=== PATIENT | female | born 1950 | race Caucasian/White ===

== ENCOUNTER 2017-01-20 07:08 | Day surgery (SDC) | payer MEDICARE, OTHER ==
[~2017-01-20 07:08] MED LIST: Lactated Ringers 1,000 ML IV SCH; Lidocaine 1%/Sod Bicarbonate in NS 8.4% 1 ML Syringe IV ONE; Lidocaine 1%/Sod Bicarbonate in NS 8.4% 1 ML Syringe IV PRN; Sodium Chloride 0.9% 10 ML Syringe FLUSH PRN
[2017-01-20] MEDS ORDERED: Lactated Ringers 1,000 ML IV SCH (07:15)
[2017-01-20] MEDS ORDERED: Lidocaine 1% with EPINEPHrine 1:100,000 20 ML MDV ONE (07:21)
[2017-01-20] MEDS ORDERED: Sodium Chloride 0.9% 50 ML SDV ONE (07:21)
[2017-01-20] MEDS ORDERED: Bupivacaine 0.25%/EPINEPHrine 1:200,000 30 ML SDV ONE (07:21)
[2017-01-20] MEDS ORDERED: Ondansetron 4 MG/2 ML SDV ONE (07:26)
[2017-01-20] MEDS ORDERED: Midazolam 1 MG/ML 2 ML SDV ONE ×2 (07:26→08:18)
[2017-01-20] MEDS ORDERED: Lidocaine 1% 0 ML ONE (07:26)
[2017-01-20] MEDS ORDERED: Lactated Ringers 1,000 ML ONE (07:26)
[2017-01-20] MEDS ORDERED: Ketamine 500 mg/10 ML MDV ONE (07:26)
[2017-01-20] MEDS ORDERED: fentaNYL 100 MCG/2 ML SDV ONE (07:26)
[2017-01-20] MEDS ORDERED: Propofol 200 MG/20 ML SDV ONE (07:26)
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
[2017-01-20] MEDS ORDERED: Rocuronium 50 MG/5 ML Vial ONE (08:19)
[2017-01-20] MEDS ORDERED: Bacitracin Oint 15 GM Tube ONE (09:02)
[2017-01-20] MEDS ORDERED: Midazolam 1 MG/ML 2 ML SDV IVPUSH PRN (09:03)
[2017-01-20] MEDS ORDERED: fentaNYL 100 MCG/2 ML SDV IVPUSH PRN (10:00)
[2017-01-20] MEDS ORDERED: HYDROmorphone 0.5 MG/0.5 ML Syringe IVPUSH PRN (10:00)
--- NOTE | 2017-01-20 10:07 | PCM.OPNOTE ---
- General Post-Op/Procedure Note Date of Surgery/Procedure: 01/20/17 Operative Procedure(s): 1. Diagnostic EGD with cold forceps biopsy. 2. Diagnostic colonoscopy with cold forceps polypectomy. 3. Excision of left thigh lesion Pre Op Diagnosis: 1. Left thigh skin lesion. 2. Abdominal pain. 3. Change in bowel pattern. 4. Bloating Post-Op Diagnosis: 1. Left thigh skin lesion. 2. Gastritis. 3. Duodenitis. 4. Esophagitis. 5. Small hiatal hernia. 6. Colon polyps. 7. Diverticulosis [place]est[place] [facility] [place]geon: Nalini Wall Anesthesia Provider: Julia Garrido Sound Assistant: Eli Stone Pathology: 1. Small bowel biopsy 2. Antral biopsy 3. Distal esophageal biopsy 4. Fluid Replacement, Intraop: 1,200 (mL crystalloid) EBL in mLs: 1 Complications: None Condition: Good Free Text/Narrative:: INDICATION FOR PROCEDURE: The patient is a 66-year-old woman who was referred to me by PRIMO Acosta for evaluation for chronic abdominal pain. She also had a skin lesion on her left upper thigh that appeared concerning. Performing a colonoscopy and EGD and the associated risks of the procedures had been discussed with the patient. The patient found these risks acceptable and agreed to proceed. DESCRIPTION OF PROCEDURE: The patient was taken to the operating room and placed under general anesthesia due to her previous sensitivities to propofol. A procedure was performed by Dr. Molina with gynecology, and after completion of her portion of the procedure, I was called to the operating room for the remaining procedures. The patient's left leg lesion was initially addressed. The skin lesion on the anterior surface of the left thigh measured 1 cm x 0.5 cm and appeared suspicious for a skin cancer. The area was prepped with chlorhexidine and draped in usual sterile fashion. Local anesthetic was injected under the lesion. A 1.5 cm x 1 cm ellipse was then created around the lesion with a scalpel. The skin was excised down to the subcutaneous fat. Undermining of 1.5 cm was performed circumferentially. The skin was approximated using 3-0 Ethilon interrupted sutures. The length of closure was 3.5 cm. 4 x 4's with bacitracin and a Tegaderm were applied. The specimen was marked, short stitch superior, long stitch lateral and sent to pathology. She was then placed in the left lateral decubitus position. After induction of adequate sedation, a bite block was placed. A standard Olympus gastroscope was inserted into the oropharynx and guided down the esophagus without difficulty. The gastroesophageal junction was appreciated at 39 cm from the teeth. There was no evidence of stricture or esophageal ulcerations. There was some mild esophagitis about the GE junction. The scope was advanced into the stomach, and there was mild gastritis. The scope was passed into the proximal jejunum and the duodenum which showed duodenitis of D1 and D2. There were no ulcerations. The proximal jejunum was grossly normal in appearance. Multiple cold forceps biopsies were obtained of the proximal jejunum and duodenum. The scope was withdrawn into the antrum, and additional cold forceps biopsies were obtained. The remainder of the gastric body was examined, and there was a diminutive hiatal hernia. The scope was retroflexed. The scope was straightened and withdrawn to the GE junction. Additional cold forceps biopsies were obtained of the distal esophagus. The scope was withdrawn through the remainder of the esophagus and no further abnormalities were noted. The posterior oropharynx was grossly normal in appearance. The scope was fully withdrawn and attention was then turned to the colonoscopy. A digital rectal exam was performed which was unremarkable. A standard adult Olympus colonoscope was inserted into the rectum and guided under direct visualization to the appendiceal orifice and ileocecal valve. Counter pressure was utilized to reach the cecum. There was a small polyp noted in the cecum, this was removed using cold forceps. There was another small polyp noted at the hepatic flexure. This was removed using cold forceps. There was a polyp in the sigmoid colon, this was small and removed using cold forceps. Finally there was a small rectal polyp, this was removed using cold forceps. The quality of the prep was good but did require irrigation/suctioning. There was no evidence of angiodysplasias. There were scattered diverticulum in the sigmoid colon. The scope was withdrawn into the rectum and retroflexed. There was no minimal, grade 1, prominence of the patient's internal hemorrhoids. The scope was straightened, the colon was desufflated, and the scope was withdrawn. The patient was awakened from anesthesia, extubated, and transferred to the recovery room in stable condition having tolerated the procedure well. Sponge and instrument counts were reported as correct at the end of the case. POSTOPERATIVE PLAN: I discussed with the patient and her significant other my intraoperative findings and recommendations. The patient will follow up in approximately 14 days to discuss pathology, her symptoms, and have suture removal from her left thigh. The patient is to stop her Fioricet as it has aspirin and caffeine. She is also to stop her meloxicam and naproxen. She has been started on omeprazole 20 mg daily. I have asked the patient to follow a GERD\gastritis diet. The patient is to call with any worsening of symptoms or questions prior to the appointment.
--- NOTE | 2017-01-20 10:10 | PCM.POSTAN ---
POST ANESTHESIA ASSESSMENT - MENTAL STATUS Mental Status: alert - VITAL SIGNS Pulse Rate: 92 SaO2: 100 Resp Rate: 23 Blood Pressure: 139/62 Temperature: 37.0 C - RESPIRATORY Respiratory Status: respiratory rate WNL, airway patent, O2 saturation stable, supplemental oxygen - CARDIOVASCULAR CV Status: pulse rate WNL, blood pressure stable - GASTROINTESTINAL GI Status: no symptoms - POST OP HYDRATION Hydration Status: adequate & stable
[2017-01-20 11:51] VITALS: BP 127/89
--- NOTE | 2017-01-20 11:59 | PCM48HPAN ---
Post Anesthesia Note - EVALUATION WITHIN 48HRS OF ANESTHETIC Vital Signs in Normal Range: Yes Patient Participated in Evaluation: Yes Respiratory Function Stable: Yes Airway Patent: Yes Cardiovascular Function Stable: Yes Hydration Status Stable: Yes Pain Control Satisfactory: Yes Nausea and Vomiting Control Satisfactory: Yes Mental Status Recovered: Yes
--- NOTE | 2017-01-21 23:48 | PCM.OPNOTE ---
- General Post-Op/Procedure Note Date of Surgery/Procedure: 01/20/17 Operative Procedure(s): excision of vulvar sebaceous cyts Findings: 5 small vulvar cysts with sebaceous material. Pre Op Diagnosis: vulvar cysts Post-Op Diagnosis: Same Anesthesia Technique: General ET tube Primary Surgeon: Connie Molina Fluid Replacement, Intraop: 300 Complications: None Condition: Good Free Text/Narrative:: Patient taken to OR. GETA initiated. Prepped and draped in lithotomy in frog leg position. Local anesthetic of 1% lidocaine infiltrated under 5 small sebaceous cysts. Each excised with scalpel and metzembaum scissors used to remove cyst wall and sebaceous material. 3-0 vicryl used to close skin. Minimal blood loss. Patient then taken out of frog leg position and moved for Dr. Wall 's procedures.
== END 2017-01-20 12:10 | disposition home or self-care (01) ==
LOC: JD.SDS 07:08
PROVIDERS: ATTEND Surgery
DX: K21.0 Gastro-esophageal reflux disease with esophagitis (principal); K29.00 Acute gastritis without bleeding; K29.80 Duodenitis without bleeding; K44.9 Diaphragmatic hernia without obstruction or gangrene; D12.0 Benign neoplasm of cecum; K63.5 Polyp of colon; D12.3 Benign neoplasm of transverse colon; D12.5 Benign neoplasm of sigmoid colon; D04.72 Carcinoma in situ of skin of left lower limb, including hip; K57.30 Diverticulosis of large intestine without perforation or abscess without bleeding; I10 Essential (primary) hypertension; E03.9 Hypothyroidism, unspecified; F41.9 Anxiety disorder, unspecified; Z98.890 Other specified postprocedural states; Z90.49 Acquired absence of other specified parts of digestive tract
CPT/HCPCS: 11602; 43239; 45380; 88305; 93005; A9270; J2250; J3010; J7120; 00400; J2405; J2704

== ENCOUNTER 2017-02-12 11:09 | Emergency (ER) | payer MEDICARE, OTHER ==
[2017-02-12 11:22] VITALS: BP 171/91
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
--- NOTE | 2017-02-12 13:41 | CR ---
Chest: Two views of the chest were obtained. Comparison: No previous chest x-ray. Patchy areas of increased density seen within the mid and upper lungs on both sides. Heart size and mediastinum are normal. Surgical anchor noted within the right humerus. Previous cervical spine surgery is noted. Impression: 1. Patchy increased density within both mid and upper lungs most likely representing bilateral pneumonia. Follow-up study recommended several weeks after clinical therapy is complete to make sure findings resolve as expected for pneumonia. 2. Other incidental findings. Diagnostic code #3
== END 2017-02-12 13:40 | disposition home or self-care (01) ==
LOC: JD.ED 11:09
DX: J18.9 Pneumonia, unspecified organism (principal); J40 Bronchitis, not specified as acute or chronic; I10 Essential (primary) hypertension; K21.9 Gastro-esophageal reflux disease without esophagitis; D64.9 Anemia, unspecified; E03.9 Hypothyroidism, unspecified; Z85.828 Personal history of other malignant neoplasm of skin; Z98.890 Other specified postprocedural states; Z86.73 Personal history of transient ischemic attack (TIA), and cerebral infarction without residual deficits; Z90.49 Acquired absence of other specified parts of digestive tract; Z79.899 Other long term (current) drug therapy; Z88.1 Allergy status to other antibiotic agents; Z88.8 Allergy status to other drugs, medicaments and biological substances
CPT/HCPCS: 36415; 71020; 71020-26; 80053; 85025; 86140; 87804; 99283; 99284

== ENCOUNTER 2017-04-24 11:45 | Emergency (ER) | payer MEDICARE, OTHER ==
[2017-04-24 11:54] VITALS: BP 147/80
[2017-04-24] MEDS ORDERED: Sodium Chloride 0.9% 10 ML Syringe FLUSH PRN (12:42)
--- NOTE | 2017-04-24 12:45 | EDM.PDOC ---
ED HPI GENERAL MEDICAL PROBLEM - General Chief Complaint: Lower Extremity Injury/Pain Stated Complaint: FELL SEVERAL TIMES HIP PAIN Time Seen by Provider: 04/24/17 12:35 Source of Information: Reports: Patient History Limitations: Reports: No Limitations - History of Present Illness INITIAL COMMENTS - FREE TEXT/NARRATIVE: 66-year-old female presents for evaluation treatment of right hip pain. Patient reports that she has been falling more recently. She attributes these falls due to sleepwalking. She reports that she is able to walk but it is painful. She is reporting pain in the right hip and into her right buttocks. She's had several falls within the last few weeks. She does not remember many of these falls. She is unsure if she's had head trauma. She reports increased blurry vision and tingling in her fingers. She denies any headaches, neck pain, nausea or vomiting. Patient is not on any blood thinners. Duration: Week(s): (1) Right Hip Pain Score (Numeric/FACES): 7 - Related Data Allergies Allergy/AdvReac Type Severity Reaction Status Date / Time cefaclor [From Ceclor] Allergy Cannot Verified 02/12/17 11:24 Remember levofloxacin [From Levaquin] Allergy Other Verified 02/12/17 11:24 morphine Allergy Other Verified 02/12/17 11:24 amoxicillin trihydrate AdvReac Nausea and Verified 02/12/17 11:24 [From Augmentin] Vomiting atorvastatin [From Lipitor] AdvReac Nausea and Verified 02/12/17 11:24 Vomiting doxycycline AdvReac Blurred Verified 02/12/17 11:24 Vision duloxetine [From Cymbalta] AdvReac Drowsiness Verified 02/12/17 11:24 potassium clavulanate AdvReac Nausea and Verified 02/12/17 11:24 [From Augmentin] Vomiting propofol AdvReac Agitation Verified 02/12/17 11:24 triamcinolone acetonide AdvReac Agitation Verified 02/12/17 11:24 [From Kenalog] venlafaxine [From Effexor] AdvReac Nausea and Verified 02/12/17 11:24 Vomiting Home Meds: Home Meds ALPRAZolam [Xanax] 0.5 tab PO BID 08/12/15 [History] Baclofen 20 mg PO QAM 08/12/15 [History] Baclofen 40 mg PO BEDTIME 08/12/15 [History] FLUoxetine [PROzac] 80 mg PO DAILY 08/12/15 [History] Losartan/Hydrochlorothiazide [Hyzaar 100-12.5 Tablet] 1 each PO DAILY 08/12/15 [ History] Melatonin 1 tab PO 0300 08/12/15 [History] Melatonin 2 tab PO BEDTIME 08/12/15 [History] diphenhydrAMINE [Benadryl] 2 tab PO Q2H PRN 08/12/15 [History] ALPRAZolam 1 mg PO 1800 01/19/17 [History] Albuterol Sulfate [Proair Hfa] 2 puff INH Q4HR PRN 01/19/17 [History] Alendronate Sodium [Fosamax] 70 mg PO WEEKLY 01/19/17 [History] Amitriptyline HCl 100 mg PO BEDTIME 01/19/17 [History] Calcium Carbonate [Calcium] 600 mg PO DAILY 01/19/17 [History] Cholecalciferol (Vitamin D3) [Vitamin D3] 2,000 unit PO DAILY 01/19/17 [History] Colestipol HCl [Colestipol] 5 g PO BID 01/19/17 [History] Donepezil HCl [Aricept] 5 mg PO BEDTIME 01/19/17 [History] Hydrocodone/Acetaminophen [[place] 10-325 Tablet] 1 tab PO Q4H PRN 01/19/17 [ History] Levothyroxine [Synthroid] 1 dose PO DAILY 01/19/17 [History] Omeprazole Magnesium [Prilosec Otc] 20 mg PO DAILY #30 tablet. 01/20/17 [Rx] Acetaminophen/Butalbital/Caff [Fioricet 325-50-40 MG] 1 tab PO Q4H PRN 04/24/17 [History] Meloxicam [Mobic] 15 mg PO DAILY PRN 04/24/17 [History] Mupirocin [Mupirocin] 1 dose TOP BID PRN 04/24/17 [History] Naproxen Sodium [Naproxen Sodium Cr] 500 mg PO ASDIRECTED PRN 04/24/17 [History] Past Medical History HEENT History: Reports: Hard of Hearing, Sinusitis Cardiovascular History: Reports: Hypertension Respiratory History: Reports: None Gastrointestinal History: Reports: GERD Other Gastrointestinal History: epigastric pain Other OB/BYN History: breast lump Musculoskeletal History: Reports: Back Pain, Chronic, Other (See Below) Other Musculoskeletal History: osteomylitis Neurological History: Reports: CVA, Headaches, Chronic, Head Trauma, Other (See Below) Other Neuro History: memory loss, Psychiatric History: Reports: Anxiety, Other (See Below) Other Psychiatric History: insomnia, memory loss Endocrine/Metabolic History: Reports: Hypothyroidism Other Endocrine/Metabolic History: hypothyroidism Hematologic History: Reports: Blood Transfusion(s) Immunologic History: Reports: None Oncologic (Cancer) History: Reports: Other (See Below) Other Oncologic History: skin cancer Dermatologic History: Reports: Other (See Below) Other Dermatologic History: bartholian cyst - Past Surgical History GI Surgical History: Reports: Cholecystectomy, Colonoscopy, EGD, Other (See Below) Female Surgical History: Reports: Tubal Ligation Musculoskeletal Surgical History: Reports: Other (See Below) Other Musculoskeletal Surgeries/Procedures:: sciatica Dermatological Surgical History: Reports: Other (See Below) Social & Family History - Family History Family Medical History: Noncontributory - Tobacco Use Smoking Status *Q: Never Smoker - Caffeine Use Caffeine Use: Reports: Coffee - Recreational Drug Use Recreational Drug Use: No Review of Systems - Review of Systems Review Of Systems: See Below Eyes: Reports: Blurred Vision GI/Abdominal: Denies: Nausea, Vomiting Musculoskeletal: Reports: Other (right hip pain). Denies: Neck Pain Neurological: Reports: Tingling, Difficulty Walking. Denies: Headache ED EXAM, GENERAL - Physical Exam Exam: See Below Exam Limited By: No Limitations General Appearance: Alert, WD/WN, No Apparent Distress Eye Exam: Bilateral Eye: EOMI, Normal Inspection, PERRL Ears: Normal External Exam, Normal Canal, Hearing Grossly Normal, Normal TMs Nose: Normal Inspection Throat/Mouth: Normal Inspection, Normal Lips, Normal Voice, No Airway Compromise Respiratory/Chest: No Respiratory Distress, Lungs Clear, Normal Breath Sounds Cardiovascular: Normal Peripheral Pulses, Regular Rate, Rhythm, No Murmur Peripheral Pulses: 2+: Posterior Tibial (L), Posterior Tibial (R), Dorsalis Pedis (L), Dorsalis Pedis (R) Extremities: Normal Inspection, Normal Range of Motion Neurological: Alert, Oriented, CN II-XII Intact, Normal Cognition, Normal Gait Psychiatric: Normal Affect, Normal Mood Skin Exam: Warm, Dry, Normal Color Course - Vital Signs Last Recorded V/S: Last Vital Signs Temp 36.7 C 04/24/17 11:51 Pulse 101 H 04/24/17 11:51 Resp 16 04/24/17 11:51 BP 147/80 H 04/24/17 11:51 Pulse Ox 97 04/24/17 11:51 - Orders/Labs/Meds Labs: Laboratory Tests 04/24/17 04/24/17 Range/Units 13:07 13:07 WBC 11.16 H (3.98-10.04) K/mm3 RBC 3.91 L (3.98-5.22) M/mm3 Hgb 12.4 (11.2-15.7) gm/L Hct 38.4 (34.1-44.9) % MCV 98.2 H (79.4-94.8) fl MCH 31.7 (25.6-32.2) pg MCHC 32.3 (32.2-35.5) g/dl RDW Std Deviation 49.3 H (36.4-46.3) fL Plt Count 271 (182-369) K/mm3 MPV 9.3 L (9.4-12.3) fl Neut % (Auto) 73.0 H (34.0-71.1) % Lymph % (Auto) 19.4 (19.3-51.7) % Terry % (Auto) 5.7 (4.7-12.5) % Eos % (Auto) 1.2 (0.7-5.8) Baso % (Auto) 0.4 (0.1-1.2) % Neut # (Auto) 8.15 H (1.56-6.13) K/mm3 Lymph # (Auto) 2.17 (1.18-3.74) K/mm3 Terry # (Auto) 0.64 H (0.24-0.36) K/mm3 Eos # (Auto) 0.13 (0.04-0.36) K/mm3 Baso # (Auto) 0.04 (0.01-0.08) K/mm3 Sodium 141 (136-145) mEq/L Potassium 4.0 (3.5-5.1) mEq/L Chloride 105 (98-107) mEq/L Carbon Dioxide 26 (21-32) mEq/L Anion Gap 14.0 (5-15) BUN 9 (7-18) mg/dL Creatinine 1.1 H (0.55-1.02) mg/dL Est Cr Clr Drug Dosing 41.62 mL/min Estimated GFR (MDRD) 50 (>60) mL/min BUN/Creatinine Ratio 8.2 L (14-18) Glucose 104 (80-115) mg/dL Calcium 8.9 (8.5-10.1) mg/dL Magnesium 1.9 (1.8-2.4) mg/dl Total Bilirubin 0.2 (0.2-1.0) mg/dL AST 20 (15-37) U/L ALT 32 (14-59) U/L Alkaline Phosphatase 93 (46-116) U/L Total Protein 7.7 (6.4-8.2) g/dl Albumin 3.5 (3.4-5.0) g/dl Globulin 4.2 gm/dL Albumin/Globulin Ratio 0.8 L (1-2) Meds: Medications Discontinued Medications Generic Name Dose Route Start Last Admin Trade Name Freq PRN Reason Stop Dose Admin Sodium Chloride 10 ml 04/24/17 12:42 04/24/17 13:09 Saline Flush FLUSH 10 ml ASDIRECTED PRN Administration Keep Vein Open - Radiology Interpretation Free Text/Narrative:: Head CT without contrast impression per Dr. Villagomez: 1. several old infacts as described. mild generalized atrophy. other senescent changes. 2. minimal sinus findings which are felt to be incidental. 3. No acute intracranial abdormailty is identified. No skull fracture is seen. right hip and pelvis xray reviewed by myself and Dr. Magana. Shows no acute fractures or dislocations. Osteopenia. CT Results Date: 04/24/17 - Re-Assessments/Exams Free Text/Narrative Re-Assessment/Exam: 04/24/17 14:40 Labs return. White blood cell count 11.16, hemoglobin 12.4 and platelets 271. Sodium 141, potassium 4.0, chloride 105. Anion gap 14.0. creatinine is 1.1. Glucose 104. Magnesium 1.9. Patient has been unable to give us a urine sample. We will defer it at this time. I reviewed the labs and imaging with the patient. I offered CT of the right hip to further evaluate. She declines at this time. Will discharge home with follow-up. Departure - Departure Time of Disposition: 14:44 Disposition: Home, Self-Care 01 Condition: Fair Clinical Impression: Hip pain, right, Fall - Discharge Information Instructions: Fall Prevention in the Home, [id number], Hip Pain Referrals: Renée Vasquez, DIRECT CUSTOMER SERVICE REPRESENTATIVE [Primary Care Provider] - Forms: ED Department Discharge Additional Instructions: Take you pain medication you have at home for pain control. Follow-up with PCP in 1 week if symptoms hve not improved. May use ice or heat to the sore areas for additional pain relief. Please return to the ER should your symptoms change or worsen.
--- NOTE | 2017-04-24 13:31 | CT ---
Head CT Technique: Multiple axial sections through the brain were obtained. Intravenous contrast was not utilized. Comparison: No previous intracranial imaging. Findings: Well-defined low density area is seen within the left cerebellar hemisphere which is felt compatible with old infarct. Ventricles along with basal cisterns and sulci over convexities are mildly prominent. Minimal diminished density is noted within the periventricular white matter which is compatible with small vessel ischemic demyelination change. Old lacunar infarct is noted within the left basal ganglia. No evidence of intracranial hemorrhage. No midline shift or mass effect is seen. Bone window settings were reviewed which shows mild mucosal thickening within the ethmoid sinuses. No acute calvarial abnormality is seen. Impression: 1. Several old infarcts as described above. Mild generalized atrophy. Other senescent change. 2. Minimal sinus findings which are felt to be incidental. 3. No acute intracranial abnormality is identified. No skull fracture is seen. Diagnostic code #2
--- NOTE | 2017-04-25 11:27 | CR ---
Pelvis and right hip: AP view of the pelvis was obtained as well as AP and frog-leg lateral views of the right hip. Comparison: No previous studies. Previous laminectomy is noted at L5. Joint spaces within both hips are maintained. Sacroiliac joint on the left side is poorly seen presumably due to degenerative change or possibly fusion. No acute fracture or other abnormality is seen. Impression: 1. Findings as noted above. Nothing acute is appreciated. Diagnostic code #2
== END 2017-04-24 15:10 | disposition home or self-care (01) ==
LOC: JD.ED 11:45
DX: M25.551 Pain in right hip (principal); I10 Essential (primary) hypertension; K21.9 Gastro-esophageal reflux disease without esophagitis; E03.9 Hypothyroidism, unspecified; Z86.69 Personal history of other diseases of the nervous system and sense organs; Z90.49 Acquired absence of other specified parts of digestive tract; Z88.1 Allergy status to other antibiotic agents; Z88.8 Allergy status to other drugs, medicaments and biological substances; Z79.899 Other long term (current) drug therapy; Z98.51 Tubal ligation status
CPT/HCPCS: 36415; 70450; 73502; 80053; 83735; 85025; 99284; J7050; 99283

== ENCOUNTER 2017-05-20 10:02 | Emergency (ER) | payer MEDICARE, OTHER ==
[2017-05-20 10:24] VITALS: BP 144/78
--- NOTE | 2017-05-20 10:31 | EDM.PDOC ---
ED HPI GENERAL MEDICAL PROBLEM - General Chief Complaint: Syncope Stated Complaint: PASSES OUT Time Seen by Provider: 05/20/17 10:30 Source of Information: Reports: Patient History Limitations: Reports: No Limitations - History of Present Illness INITIAL COMMENTS - FREE TEXT/NARRATIVE: 66-year-old female presents to the ED after experiencing a syncopal event or at least a loss of consciousness for prolonged period of time last evening. She was scheduled to come in last evening for a sleep study. She remembers going to her bathroom to get her toothbrush and other things that she might need and the next thing she knew she woke up on the floor and was an hour and a half later. The phone was ringing and they had to reschedule her sleep study. Patient states that she hit the cupboard door in her bedroom and knocked it off its hinges. The TV is tipped over and broken. The history suggests several types of similar events where there is a loss of memory for what happened and she thought perhaps was related to sleeping pills and discontinued Lunesta. They report one event where she went to bed with a bowl of ice cream with the hot chocolate sauce on it and awoke to found it splattered against the wall. I have some suspicion clinically that she is experiencing seizures that have not been diagnosed. She denies drinking any alcohol. is away in [place] at this time as his job is relocated him there and she is planning to move there in the next few weeks. She has never appreciated loss of bladder or bowel control during one of these events or biting her tongue. Onset: Sudden (Last p.m.) Onset Date: 05/19/17 Onset Time: 21:30 Duration: Hour(s): Location: Reports: Head Severity: Moderate Improves with: Reports: None Worsens with: Reports: None Context: Denies: Activity, Exercise, Lifting, Sick Contact, Trauma, Other Associated Symptoms: Reports: Confusion (Treatment confusion and her friend reports that she seems dysarthric at times an hour. Time her dysarthria will improve suggestive of a postictal phase sort of syndrome), Loss of Appetite, Malaise. Denies: Diaphoresis, Fever/Chills, Headaches, Nausea/Vomiting, Rash, Seizure, Shortness of Breath, Syncope Treatments CAR BUILDER: Reports: Other (see below) Right Upper Abdominal Pain Score (Numeric/FACES): 7 - Related Data Allergies Allergy/AdvReac Type Severity Reaction Status Date / Time cefaclor [From Ceclor] Allergy Cannot Verified 05/20/17 10:18 Remember levofloxacin [From Levaquin] Allergy Other Verified 05/20/17 10:18 morphine Allergy Other Verified 05/20/17 10:18 amoxicillin trihydrate AdvReac Nausea and Verified 05/20/17 10:18 [From Augmentin] Vomiting atorvastatin [From Lipitor] AdvReac Nausea and Verified 05/20/17 10:18 Vomiting doxycycline AdvReac Blurred Verified 05/20/17 10:18 Vision duloxetine [From Cymbalta] AdvReac Drowsiness Verified 05/20/17 10:18 potassium clavulanate AdvReac Nausea and Verified 05/20/17 10:18 [From Augmentin] Vomiting propofol AdvReac Agitation Verified 05/20/17 10:18 triamcinolone acetonide AdvReac Agitation Verified 05/20/17 10:18 [From Kenalog] venlafaxine [From Effexor] AdvReac Nausea and Verified 05/20/17 10:18 Vomiting Home Meds: Home Meds ALPRAZolam [Xanax] 0.5 mg PO DAILY@1400 08/12/15 [History] Baclofen 20 mg PO BID 08/12/15 [History] FLUoxetine [PROzac] 80 mg PO DAILY 08/12/15 [History] Losartan/Hydrochlorothiazide [Hyzaar 100-12.5 Tablet] 1 each PO DAILY 08/12/15 [ History] Albuterol Sulfate [Proair Hfa] 2 puff INH Q4HR PRN 01/19/17 [History] Alendronate Sodium [Fosamax] 70 mg PO TH@0600 01/19/17 [History] Amitriptyline HCl 100 mg PO BEDTIME 01/19/17 [History] Donepezil HCl [Aricept] 5 mg PO BEDTIME 01/19/17 [History] Hydrocodone/Acetaminophen [[place] 10-325 Tablet] 1 tab PO TID PRN 01/19/17 [ History] Acetaminophen/Butalbital/Caff [Fioricet 325-50-40 MG] 1 tab PO Q4H PRN 04/24/17 [History] ALPRAZolam [Alprazolam] 0.5 mg PO DAILY@0300 PRN 05/20/17 [History] ALPRAZolam [Alprazolam] 1 mg PO BEDTIME 05/20/17 [History] ARIPiprazole [Abilify] 1 mg PO BEDTIME 05/20/17 [History] Aloe Vera/Sodium Chloride [[place] Saline Nasal Gel] 1 applic BASIL ASDIRECTED PRN 07/27 [History] Ascorbic Acid [Vitamin C] 1,000 mg PO DAILY 05/20/17 [History] Baclofen 20 mg PO DAILY@1400 PRN 05/20/17 [History] Calcium Carbonate/Vitamin D3 [Calcium 600 + Vit D Tablet] 1 tab PO DAILY [History] Cholecalciferol (Vitamin D3) [D3 Dots] 2,000 unit PO DAILY 05/20/17 [History] Colestipol HCl [Colestipol HCl] 0.5 gm PO QID 05/20/17 [History] Cyanocobalamin (Vitamin B-12) [Vitamin B-12] 1,000 mcg PO DAILY 05/20/17 [ History] Gabapentin [Neurontin] 100 mg PO TID 05/20/17 [History] Levothyroxine [Synthroid] 100 mcg PO ACBREAKFAST 05/20/17 [History] Multivitamin with Minerals [Multiple Vitamin] 1 tab PO DAILY 05/20/17 [History] Omeprazole Magnesium [Prilosec Otc] 20 mg PO DAILY PRN 05/20/17 [History] Vitamin B Complex 1 each PO DAILY 05/20/17 [History] levETIRAcetam [Keppra] 500 mg PO ASDIRECTED #42 tablet 05/20/17 [Rx] Past Medical History HEENT History: Reports: Hard of Hearing, Sinusitis Cardiovascular History: Reports: Hypertension Respiratory History: Reports: None Gastrointestinal History: Reports: GERD Other Gastrointestinal History: epigastric pain Other OB/BYN History: breast lump Musculoskeletal History: Reports: Back Pain, Chronic, Other (See Below) Other Musculoskeletal History: osteomylitis Neurological History: Reports: CVA, Headaches, Chronic, Head Trauma, Other (See Below) Other Neuro History: memory loss, Psychiatric History: Reports: Anxiety, Other (See Below) Other Psychiatric History: insomnia, memory loss Endocrine/Metabolic History: Reports: Hypothyroidism Other Endocrine/Metabolic History: hypothyroidism Hematologic History: Reports: Blood Transfusion(s) Immunologic History: Reports: None Oncologic (Cancer) History: Reports: Other (See Below) Other Oncologic History: skin cancer Dermatologic History: Reports: Other (See Below) Other Dermatologic History: bartholian cyst - Past Surgical History GI Surgical History: Reports: Cholecystectomy, Colonoscopy, EGD, Other (See Below) Female Surgical History: Reports: Tubal Ligation Musculoskeletal Surgical History: Reports: Other (See Below) Other Musculoskeletal Surgeries/Procedures:: sciatica Dermatological Surgical History: Reports: Other (See Below) Social & Family History - Family History Family Medical History: Noncontributory - Tobacco Use Smoking Status *Q: Never Smoker - Caffeine Use Caffeine Use: Reports: Coffee - Recreational Drug Use Recreational Drug Use: No - Living Situation & Occupation Living situation: Reports: (Awaiting to move to [place] where her ' s job is been reviewed relocated 2.) Occupation: Unemployed ED ROS GENERAL - Review of Systems Review Of Systems: See Below Constitutional: Reports: Malaise, Weakness, Fatigue. Denies: Fever, Chills, Weight Loss HEENT: Denies: Vision Change Respiratory: Denies: Shortness of Breath, Wheezing, Pleuritic Chest Pain Cardiovascular: Reports: Blood Pressure Problem, Lightheadedness. Denies: Chest Pain, Claudication (Does take medication for high blood pressure.), Dyspnea on Exertion, Edema (At times.), Orthopnea, Palpitations Endocrine: Reports: Fatigue GI/Abdominal: Reports: No Symptoms : Reports: Frequency Musculoskeletal: Reports: Back Pain, Joint Pain Skin: Reports: No Symptoms, Other Neurological: Reports: Confusion (Often has bruises or scratches that she cannot account for.), Dizziness ( Intermittently), Headache ( remittent currently chronic daily headache for the most part ), Syncope (Syncope versus seizure disorder), Trouble Speaking (At times), Weakness, Change in Speech ( Reported by her friend to be dysarthric when she is phone sometimes. This improves over time suggesting postictal phase). Denies: Pre-Existing Deficit, Tremors Psychiatric: Reports: No Symptoms, Depression Hematologic/Lymphatic: Reports: No Symptoms (Is on fluoxetine for depression and anxiety.) Immunologic: Reports: No Symptoms - Physical Exam Exam: See Below Exam Limited By: No Limitations General Appearance: Alert, WD/WN, Anxious (Mild) Eye Exam: Bilateral Eye: Normal Inspection Throat/Mouth: Normal Inspection, Normal Lips, Normal Oropharynx, Other Head Exam: Atraumatic, Normocephalic, Other (No palpable hematomas oropen wounds.) Respiratory/Chest: No Respiratory Distress, Lungs Clear, Normal Breath Sounds, No Accessory Muscle Use Cardiovascular: Normal Peripheral Pulses, Regular Rate, Rhythm, No Edema, No Murmur GI/Abdominal: Normal Bowel Sounds, Soft, Non-Tender, No Organomegaly, No Abnormal Bruit Neuro Exam (Abbreviated): Alert, Oriented, CN II-XII Intact, Normal Cognition, Normal Gait, Normal Reflexes, No Motor/Sensory Deficits Back Exam: Normal Inspection, Full Range of Motion. No: CVA Tenderness (L), CVA Tenderness (R) Extremities: Normal Inspection, Normal Range of Motion, Non-Tender, No Pedal Edema, Normal Capillary Refill, Other (No signs of significant trauma to her extremities.) Psychiatric: Normal Affect, Normal Mood Skin Exam: Warm, Dry, Intact, Normal Color, No Rash EKG INTERPRETATION EKG Date: 05/20/17 Time: 11:05 Rhythm: NSR Rate (Beats/Min): 85 [place]: Normal P-Wave: Present QRS: Other (Decreased voltage throughout the limb leads.) ST-T: Normal QT: Prolonged (Mildly prolonged.) EKG Interpretation Comments: Abnormal ECG. Course - Vital Signs Last Recorded V/S: Last Vital Signs Temp 36.7 C 05/20/17 10:19 Pulse 96 05/20/17 10:19 Resp 16 05/20/17 10:19 BP 144/78 H 05/20/17 10:19 Pulse Ox 99 05/20/17 10:19 Orthostatic Blood Pressure [ 131/82 Standing] Orthostatic Blood Pressure [ 133/72 Sitting] Orthostatic Blood Pressure [ 136/86 Supine] - Orders/Labs/Meds Orders: Active Orders 24 hr Category Date Time Status EKG Documentation Completion [RC] STAT Care 05/20/17 10:40 Active Orthostatic Vital Signs [RC] ASDIRECTED Care 05/20/17 10:41 Active Chest 1V Frontal [CR] Stat Exams 05/20/17 10:40 Taken DRUG SCREEN, URINE [URCHEM] Stat Lab 05/20/17 10:44 Uncollected PROLACTIN [REF] Stat Lab 05/20/17 10:20 Received Labs: Laboratory Tests 05/20/17 05/20/17 Range/Units 10:20 10:20 WBC 10.68 H (3.98-10.04) K/mm3 RBC 3.68 L (3.98-5.22) M/mm3 Hgb 11.6 (11.2-15.7) gm/L Hct 35.8 (34.1-44.9) % MCV 97.3 H (79.4-94.8) fl MCH 31.5 (25.6-32.2) pg MCHC 32.4 (32.2-35.5) g/dl RDW Std Deviation 48.9 H (36.4-46.3) fL Plt Count 284 (182-369) K/mm3 MPV 9.3 L (9.4-12.3) fl Neutrophils % (Manual) 54 (40-60) % Band Neutrophils % 0 (0-10) % Lymphocytes % (Manual) 33 (20-40) % Atypical Lymphs % 0 % Monocytes % (Manual) 7 (2-10) % Eosinophils % (Manual) 5 (0.7-5.8) % Basophils % (Manual) 1 (0.1-1.2) Platelet Estimate Adequate Plt Morphology Comment Normal Polychromasia 1+ slight Acanthocytes (Spur) Rare RBC Morph Comment Not Reportable Sodium 141 (136-145) mEq/L Potassium 3.5 (3.5-5.1) mEq/L Chloride 106 (98-107) mEq/L Carbon Dioxide 26 (21-32) mEq/L Anion Gap 12.5 (5-15) BUN 13 (7-18) mg/dL Creatinine 1.1 H (0.55-1.02) mg/dL Est Cr Clr Drug Dosing 41.62 mL/min Estimated GFR (MDRD) 50 (>60) mL/min BUN/Creatinine Ratio 11.8 L (14-18) Glucose 115 (80-115) mg/dL Calcium 9.3 (8.5-10.1) mg/dL Total Bilirubin 0.2 (0.2-1.0) mg/dL AST 27 (15-37) U/L ALT 46 (14-59) U/L Alkaline Phosphatase 77 (46-116) U/L Creatine Kinase 193 H (26-192) U/L C-Reactive Protein 0.7 (<1.0) mg/dL Total Protein 7.1 (6.4-8.2) g/dl Albumin 3.7 (3.4-5.0) g/dl Globulin 3.4 gm/dL Albumin/Globulin Ratio 1.1 (1-2) Ethyl Alcohol 0.00 (0.00) gm% - Radiology Interpretation Free Text/Narrative:: 66-year-old female presents to the ED with reported event where she lost consciousness last evening while in her bathroom. She was scheduled to come into the hospital for a sleep study last evening. She members going to the bathroom to get her toothbrush and perhaps other things she might need while she was here and the next thing she knows she woke up on the afternoon floor. She believes an hour and a half and transpired since she had entered the bathroom. The phone rang and it was the sleep lab indicating why she wasn't there. It was rescheduled. History suggests that she's having frequent similar type events where she loses consciousness and can't remember what happened. History from her friend suggest show phone her be very dysarthric and then improve over a period of time suggesting postictal phase. I am highly suspicious the patient is having intermittent seizures to account for her memory losses and prolonged response unresponsive events. Orthostatic BPs today are normal. I note that she is on Prozac and this could certainly lower her seizure threshold. She is also on baclofen as far as I can account for and I'm not exactly sure why she is on this medication. As having had previously cerebrovascular accidents. These could place her at risk of seizure development. - Re-Assessments/Exams Free Text/Narrative Re-Assessment/Exam: 05/20/17 11:05 CT scan of the brain reveals an old lacunar infarct possibly a centimeter in diameter at the white-franco differential zone internal capsule on the left side. There are several small stable infarcts within the left cerebellar hemisphere which appears similar to previous CT exam. There is mild mucosal thickening within the left maxillary and moderate mucosal thickening of the left ethmoid sinuses as well as mild mucosal thickening within the right ethmoid sinus and left frontal sinus. No air-fluid levels are seen but has the appearance of acute sinusitis. No other mass effect oral lesions are identified. Chest x-ray reveals mildly hyperinflated lung brewster that are clear with normal heart shadow. 05/20/17 12:09 white count is 10.68 with a normal differential 54% neutrophils no bands. Hemoglobin is slightly low at 11.6 hematocrit is 35.8. Normal MCV. Platelets 284,000. Chemistry is normal other than a low normal potassium at 3.5. Anion gap is 13. Creatinine is 1.1 EGFR is 50. CPK is slightly elevated at 193. Blood alcohol was 0. Therefore I'm going to place the patient on Keppra starting with 250 mg morning and bedtime for 5 days and then increasing to 500 mg twice a day. She is on medications baclofen amitriptyline and Prozac fairly high dose at 80 mg per day all of which could lower her seizure threshold. She has a reason to have seizures due to previous CVA involving the left basal ganglia. She does need an EEG and I will try and set this up as an outpatient. It appears that she can probably not do without her baclofen and she's been on it for many years one half to be weaned off this medication. Similarly she has gone off Prozac in the past but had to go back on due to depression symptoms post CVA.. She is on amitriptyline and Abilify at bedtime again Abilify also may lower her seizure threshold. 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 She reports symptoms seem to worsen over the last 2 weeks since her has been gone. There is no doubt that her cognitive function has been impaired since the CVA. She is to follow-up with her personal care physician before she leaves for [place] in 2 weeks time to see if the Keppra needs to be continued if she is having less of these events. Departure - Departure Time of Disposition: 12:15 Disposition: Home, Self-Care 01 Condition: Fair Clinical Impression: Recurrent episodes of unresponsiveness, Seizure Complex partial seizure disorder Qualifiers: Epilepsy type: partial symptomatic Intractability: not intractable Status epilepticus: without status epilepticus Qualified Code(s): G40.209 - Localization-related (focal) (partial) symptomatic epilepsy and epileptic syndromes with complex partial seizures, not intractable, without status epilepticus - Discharge Information Prescriptions: levETIRAcetam [Keppra] 500 mg PO ASDIRECTED #42 tablet Instructions: Seizure, Adult Referrals: Renée Vasquez, [employer] ENGINEER [Primary Care Provider] - Forms: ED Department Discharge Additional Instructions: Evaluation in the emergency room today in regards to a prolonged bout of unresponsiveness noted last evening. As you're getting to come to the hospital for a sleep study he went into the bathroom to get her toothbrush another necessities when you suddenly collapsed. As you indicate she found herself lying on the bathroom floor and had obviously crashed into the closet door knocking it off its track it intact turn had struck the television breaking it. You had no recollection of what happened to you. It seems like it took nearly an hour and a half before you came around to recognize that something had occurred. The history suggests cerebral bouts of unresponsiveness or confusional like states that suggest petit mal type seizures. You had numerous reasons to have developed a Abilify seizure disorder. The CVA with previous damage to the left basal ganglia identified on CT today could provoke seizure disorder. Unfortunately several of her medications also lower her seizure threshold this includes Prozac ,amitriptyline, baclofen, Abilify etc. My clinical suspicion is that you are suffering from a undiagnosed seizure disorder. I will try and set up a EEG study with respiratory therapy here in the hospital within the next week. They will call you with an appointment time. In the meantime I would suggest starting anti-seizure medication Keppra starting with 250 mg in the morning and then at bedtime for 5 days and then increasing to 500 mg twice daily starting on this dosage for 2-3 weeks' time to see if her spells are these episodes get better. - My Orders Last 24 Hours: My Active Orders 05/20/17 10:20 PROLACTIN [REF] Stat 05/20/17 10:40 EKG Documentation Completion [RC] STAT Chest 1V Frontal [CR] Stat 05/20/17 10:41 Orthostatic Vital Signs [RC] ASDIRECTED 05/20/17 10:44 DRUG SCREEN, URINE [URCHEM] Stat - Assessment/Plan Last 24 Hours: My Active Orders 05/20/17 10:20 PROLACTIN [REF] Stat 05/20/17 10:40 EKG Documentation Completion [RC] STAT Chest 1V Frontal [CR] Stat 05/20/17 10:41 Orthostatic Vital Signs [RC] ASDIRECTED 05/20/17 10:44 DRUG SCREEN, URINE [URCHEM] Stat
--- NOTE | 2017-05-20 11:10 | CT ---
Head CT Technique: Multiple axial sections through the brain were obtained. Intravenous contrast was not utilized. Comparison: Previous head CT study of 04/24/17. Findings: Ventricles along with basal cisterns and sulci over the convexities are mildly prominent. Slight diminished density is noted within the periventricular white matter compatible with small vessel ischemic demyelination change. Several well defined low density areas remain stable within the left cerebellar hemisphere which are felt compatible with old infarcts. Old infarct is noted within the left basal ganglia. No other abnormal parenchymal densities are seen. No evidence of intracranial hemorrhage. No midline shift or mass effect is seen. Bone window settings were reviewed which shows mild mucosal thickening within left maxillary and moderate mucosal thickening of the left ethmoid sinus as well as mild mucosal thickening within the right ethmoid sinus and left frontal sinus. No acute calvarial abnormality is seen. Impression: 1. Sinus disease which is an interval change from prior exam. No air-fluid levels are seen but given the interval change difficult to exclude acute sinusitis. 2. Senescent change as described above. 3. No acute intracranial abnormality is appreciated. Diagnostic code #3
--- NOTE | 2017-05-20 12:57 | CR ---
Chest: Portable view of the chest was obtained. Comparison: Previous chest x-ray of 02/12/17. Lungs are clear. Heart size and mediastinum are normal. Previous cervical spine surgery is noted. Previous right shoulder surgery is seen. No acute bony abnormality is identified. Impression: 1. Nothing acute is identified on portable chest x-ray. Diagnostic code #2
== END 2017-05-20 12:49 | disposition home or self-care (01) ==
LOC: JD.ED 10:02
DX: G40.209 Localization-related (focal) (partial) symptomatic epilepsy and epileptic syndromes with complex partial seizures, not intractable, without status epilepticus (principal); I10 Essential (primary) hypertension; K21.9 Gastro-esophageal reflux disease without esophagitis; Z86.73 Personal history of transient ischemic attack (TIA), and cerebral infarction without residual deficits; E03.9 Hypothyroidism, unspecified; Z85.828 Personal history of other malignant neoplasm of skin; Z90.49 Acquired absence of other specified parts of digestive tract; Z98.51 Tubal ligation status; Z98.890 Other specified postprocedural states; Z79.899 Other long term (current) drug therapy; Z88.8 Allergy status to other drugs, medicaments and biological substances; Z88.1 Allergy status to other antibiotic agents; Z88.5 Allergy status to narcotic agent
CPT/HCPCS: 36415; 70450; 71010; 80053; 82550; 84146; 85025; 86140; 93005; 99285; G0480; 99284